=== PATIENT | female | born 1950 | race Caucasian/White ===

== ENCOUNTER 2021-10-26 09:51 | Day surgery (SDC) | payer OTHER ==
[2021-10-24 12:52] VITALS: BMI 28.1
[2021-10-26] MEDS ORDERED: TETRACAINE 0.5% OPHTH SOLN 2 ML BOTTLE ONE (10:47)
[2021-10-26] MEDS ORDERED: NEO/POLYMYX B SULF/DEXAMETH OPHTHALMIC 5ML BOTTLE ONE (10:47)
[2021-10-26] MEDS ORDERED: LIDOCAINE 1% P/F 10 MG/ML VIAL ONE (10:47)
[2021-10-26] MEDS ORDERED: BSS (NA/CA/MG/K) BALANCED SALT SOLUTION OPHTH SOLN 15 ML BOTTLE ONE (10:47)
[2021-10-26] MEDS ORDERED: CARBACHOL 0.01% INTRA-OCULAR 1.5 ML VIAL ONE (10:47)
[2021-10-26] MEDS: CIPROFLOXACIN 0.3% EYE DROPS 5 ML BOTTLE ONE ×3 (11:00→11:10)
[2021-10-26] MEDS: TROPICAMIDE 1% OPHTH SOLN 15 ML BOTTLE ONE ×3 (11:05→11:15)
[2021-10-26] MEDS: CYCLOPENTOLATE 2% OPHTH SOLN 2 ML BOTTLE ONE ×3 (11:05→11:15)
[2021-10-26] MEDS: PHENYLEPHRINE 2.5% OPHTH SOLN 15 ML BOTTLE ONE ×3 (11:05→11:15)
[2021-10-26] MEDS ORDERED: MIDAZOLAM HCL 2 MG/2 ML SINGLE DOSE VIAL ONE (11:29)
[2021-10-26 14:08] VITALS: PULSE 70; RESP 18; TEMP 97.8
[2021-10-26 14:09] VITALS: BP 139/81
== END 2021-10-26 13:10 | disposition home or self-care (01) ==
LOC: FASU 09:51
PROVIDERS: ATTEND Ophthalmology
PROC: 08RK3JZ Replacement of Left Lens with Synthetic Substitute, Percutaneous Approach (ICD-10-PCS; principal; 2021-10-26 12:06)
DX: H26.8 Other specified cataract (principal)
CPT/HCPCS: 66984; V2632

== ENCOUNTER 2021-11-30 08:24 | Day surgery (SDC) | payer OTHER ==
[2021-11-24 11:50] VITALS: BMI 28.1
[2021-11-30] MEDS: CYCLOPENTOLATE 2% OPHTH SOLN 2 ML BOTTLE ONE ×3 (08:50→09:00)
[2021-11-30] MEDS: PHENYLEPHRINE 2.5% OPHTH SOLN 15 ML BOTTLE ONE ×3 (08:50→09:00)
[2021-11-30] MEDS: CIPROFLOXACIN 0.3% EYE DROPS 5 ML BOTTLE ONE ×3 (08:50→09:00)
[2021-11-30] MEDS: TROPICAMIDE 1% OPHTH SOLN 15 ML BOTTLE ONE ×3 (08:50→09:00)
[2021-11-30] MEDS ORDERED: NEO/POLYMYX B SULF/DEXAMETH OPHTHALMIC 5ML BOTTLE ONE (08:51)
[2021-11-30] MEDS ORDERED: BSS (NA/CA/MG/K) BALANCED SALT SOLUTION OPHTH SOLN 15 ML BOTTLE ONE (08:51)
[2021-11-30] MEDS ORDERED: CARBACHOL 0.01% INTRA-OCULAR 1.5 ML VIAL ONE (08:51)
[2021-11-30 08:52] VITALS: TEMP 97.8
[2021-11-30] MEDS ORDERED: MIDAZOLAM HCL 2 MG/2 ML SINGLE DOSE VIAL ONE ×2 (10:05→11:19)
[2021-11-30 11:21] VITALS: RESP 18
[2021-11-30 11:28] VITALS: BP 164/71; PULSE 89
== END 2021-11-30 11:15 | disposition home or self-care (01) ==
LOC: FASU 08:24
PROVIDERS: ATTEND Ophthalmology
PROC: 08RJ3JZ Replacement of Right Lens with Synthetic Substitute, Percutaneous Approach (ICD-10-PCS; principal; 2021-11-30 10:30)
DX: H26.8 Other specified cataract (principal)
CPT/HCPCS: 66984; V2632